=== PATIENT | male | born 1990 | race Caucasian/White ===

== ENCOUNTER 2025-03-23 12:33 | Emergency (ER) | payer MEDICAID, OTHER ==
[~2025-03-23] VITALS: Ht 170.2 cm; Wt 67.7 kg
[2025-03-23 13:40] VITALS: BP 117/78; PULSE 90; RESP 16; TEMP 98.1; O2SAT 96
[2025-03-23 13:43] LABS: Urine Bacteria None Seen /hpf (None Seen)
[2025-03-23 13:56] LABS: Urine Blood TRACE /uL (Negative); Urine Clarity Clear (Clear); Urine Color Yellow (Yellow); Urine Hyaline Cast FEW /lpf (0 - 2); Urine Protein, UAD Negative (Negative); Urine Specific Gravity 1.012 (1.001-1.035); Urine Squamous Epithelial Cell None Seen /hpf (<5); Urine Urobilinogen Normal (Negative); Urine WBC 2 /HPF (0-3)
--- NOTE | 2025-03-23 14:12 | ED.PDOC ---
History of Present Illness EXP HPI Comments 34-year-old male presents for STD concerns. Denies fevers chills night sweats Denies pelvic pain Denies nausea vomiting diarrhea Denies dysuria urgency frequency Denies history of UTI Denies blood in the urine or semen Denies recent instruments/toys and urethra Denies current tobacco use Denies family history of prostate issues Chief Complaint: Post Exposure Time Seen by MD: 13:00 Primary Care Provider: NONE Reviewed Notes: Nurses Notes, Medications, Allergies Allergies: Coded Allergies: NO KNOWN ALLERGIES (Unverified , 06/28/14) Information Source: Patient Mode of Arrival: Ambulatory Past Medical History PAST MEDICAL HISTORY: Denies Surgical History: Denies all surgeries Family History Family History: Unknown Social History Smoker: Non-Smoker Alcohol: Denies ETOH Use Drugs: Denies Drug Use All Other Systems: Reviewed and Negative (PER HPI) Physical Exam General Appearance: No Apparent Distress, Normal HEENT: Normal ENT Inspection, Pharynx Normal, TMs Normal Neck: Full Range of Motion, Non-Tender, Normal, Normal Inspection Respiratory: Chest Non-Tender, Lungs Clear, No Accessory Muscle Use, No Respiratory Distress, Normal Breath Sounds Cardiovascular: No Edema, No JVD, No Murmur, No Gallop, Normal Peripheral Pulses, Regular Rate/Rhythm Breast Exam: Deferred Gastrointestinal: No Organomegaly, Non Tender, No Pulsatile Mass, Normal Bowel Sounds, Soft Genitalia: Deferred Pelvic: Deferred Rectal: Deferred Extremities: No calf tenderness, Normal capillary refill, Normal inspection, Normal range of motion, Non-tender, No pedal edema Musculoskeletal : Apperance: Normal Neurologic: Alert, coil maker II-XII nml as Tested, No Motor Deficits, Normal Affect, Normal Mood, No Sensory Deficits Cerebellar Function: Normal Reflexes: Normal Skin: Dry, Normal Color, Warm Lymphatic: No Adenopathy Was a procedure done? Was a procedure done?: No Differential Diagnosis (EXP) Differential Diagnosis: Other X-Ray, Labs, Meds, VS Vital Signs Date Time Temp Pulse Resp B/P (MAP) Pulse Ox O2 Delivery O2 Flow Rate FiO2 03/23/25 13:40 98.1 90 16 117/78 (91) 96 98.1 03/23/25 13:40 90 16 96 Room Air 03/23/25 12:45 98.4 94 17 113/72 (86) 95 98.4 Lab Test 03/23/25 13:11 03/23/25 13:02 Range/Units Hepatitis B Surface Antigen Negative Negative Hepatitis B Surface Antibody Negative Negative Hepatitis C Antibody Pending HIV (1&2) Antibody Negative Negative Urine Color Yellow Yellow Urine Clarity Clear Clear Urine pH 5.0 5.0-9.0 Urine Specific [place] 1.012 1.001-1.035 Urine Protein Negative Negative Urine Ketones Trace Negative Urine Blood Trace H Negative /uL Urine Nitrite Negative Negative Urine Bilirubin Negative Negative Urine Urobilinogen Normal Negative mg/dL Urine Leukocyte Esterase Negative Negative /uL Urine RBC 1 0 - 3 /hpf Urine Microscopic WBC 2 0-3 /HPF Urine Squamous Epithelial Cells None seen <5 /hpf Urine Bacteria None seen None Seen /hpf Urine Hyaline Casts Few 0 - 2 /lpf Urine Glucose Normal Normal mg/dL Chlamydia trachomatis (ELSA) Pending Neisseria gonorrhoeae (ELSA) Pending X-Ray, Labs, Meds, VS Comment Discussed safe sex practices. Labs ordered. Advised patient that it is his responsibility to follow up on results. Abstain from sex until findings have been discussed Patient is stable for discharge at this time. External notes reviewed. Test results and diagnostic imaging interpreted. All diagnostic findings, discharge care, education and instructions provided Follow-up with PCP in 2 to 3 days Patient verbalized understanding and agreed to treatment plan Vital signs stable, afebrile, no acute distress noted Patient ambulatory with strong steady gait Advised to return precautions for any new or worsening symptoms, return to ER immediately for re-evaluation Patient is aware that the purpose of this visit was for an acute medical emergency requiring emergent stabilization. Chronic conditions, including malignancies have not been ruled out. Patient is instructed to follow up with PCP as directed and discharge instructions for continued care and workup. If unable to arrange follow-up, patient is to return to the emergency department f or reassessment. Patient (parent or legal guardian if applicable) was given verbal and written discharge instructions and acknowledges understanding. Time of 1ST Reevaluation: 14:00 Reevaluation 1ST: Improved Patient Education/Counseling: Diagnosis, Treatment Family Education/Counseling: Diagnosis, Treatment Departure 1 Departure Time of Disposition: 14:12 Impression: Primary Impression: Penile lump Disposition: 01 HOME / SELF CARE / HOMELESS Condition: Stable Discharged With: Self Critical Care Note Critical Care Time?: No Stability Stability form required: No Heart Score Heart Score: Heart Score Response (Comments) Value History N/A 0 EKG N/A 0 Age N/A 0 Risk Factors N/A 0 Troponin N/A 0 Total 0 JESSICA GALLEGOS NP Mar 23, 2025 14:12
--- NOTE | 2025-03-23 14:18 | ED.PDOC ---
General HPI Comments 34 y/o M, presents to the ED for CC of post exposure. Patient states, he has a bump to the shaft of his penis which has been present for xweeks. Patient reports, that he believed bump to be associated d/t shaving however, bump has not resolved. Patient comments, he would like to be tested for possible STD's/STI's despite having no new sexual partners. Patient denies itchiness, penile discharge, fever, or chills. no other symptoms or modifying factors present at this time. Sexual protection Denies fevers chills night sweats Denies pelvic pain Denies nausea vomiting diarrhea Denies dysuria urgency frequency Denies history of UTI Denies blood in the urine or semen Denies recent instruments/toys and urethra Denies current tobacco use Denies family history of prostate issues Chief Complaint: Post Exposure Time Seen by MD: 14:00 Primary Care Provider: NONE Reviewed notes: Nurses Notes, Medications, Allergies Allergies: Coded Allergies: NO KNOWN ALLERGIES (Unverified , 06/28/14) Information Source: Patient Mode of Arrival: Ambulatory Severity: Moderate Inability to void: None Timing: Weeks Duration: Since onset Prehospital treatment: None Onset: Spontaneous Symptoms: None History of: None Location: Other ([facility] [facility] ) Penile discharge: None Modifying factors: None associated signs and symptoms: None Past Medical History PAST MEDICAL HISTORY: Denies Surgical History: Denies all surgeries Family History Family History: Unknown Social History Smoker: Non-Smoker Alcohol: Denies ETOH Use Drugs: Denies Drug Use Lives In: Home All Other Systems: Reviewed and Negative ( PER HPI) Physical Exam General Appearance: No Apparent Distress, Normal HEENT: Normal ENT Inspection, Pharynx Normal, TMs Normal Neck: Full Range of Motion, Non-Tender, Normal, Normal Inspection Respiratory: Chest Non-Tender, Lungs Clear, No Accessory Muscle Use, No Respiratory Distress, Normal Breath Sounds Cardiovascular: No Edema, No Murmur, No Gallop, Normal Peripheral Pulses, Regular Rate/Rhythm Breast Exam: Deferred Gastrointestinal: No Organomegaly, Non Tender, No Pulsatile Mass, Normal Bowel Sounds, Soft Genitalia: Deferred Pelvic: Deferred Rectal: Deferred Extremities: No calf tenderness, Normal capillary refill, Normal inspection, Normal range of motion, Non-tender, No pedal edema Musculoskeletal : Apperance: Normal Neurologic: Alert, senior underwriter II-XII nml as Tested, No Motor Deficits, Normal Affect, Normal Mood, No Sensory Deficits Cerebellar Function: Normal Reflexes: Normal Skin: Dry, Normal Color, Warm Lymphatic: No Adenopathy Was a procedure done? Was a procedure done?: No Differential Diagnosis Kidney stone (Female): Other Penile/Scrotal: Epidiymitis, Prostatitis, STD X-Ray, Labs, Meds, VS Vital Signs Date Time Temp Pulse Resp B/P (MAP) Pulse Ox O2 Delivery O2 Flow Rate FiO2 03/23/25 13:40 98.1 90 16 117/78 (91) 96 98.1 03/23/25 13:40 90 16 96 Room Air 03/23/25 12:45 98.4 94 17 113/72 (86) 95 98.4 Lab Test 03/23/25 13:11 03/23/25 13:02 Range/Units Hepatitis B Surface Antigen Negative Negative Hepatitis B Surface Antibody Negative Negative Hepatitis C Antibody Pending HIV (1&2) Antibody Negative Negative Urine Color Yellow Yellow Urine Clarity Clear Clear Urine pH 5.0 5.0-9.0 Urine Specific [place] 1.012 1.001-1.035 Urine Protein Negative Negative Urine Ketones Trace Negative Urine Blood Trace H Negative /uL Urine Nitrite Negative Negative Urine Bilirubin Negative Negative Urine Urobilinogen Normal Negative mg/dL Urine Leukocyte Esterase Negative Negative /uL Urine RBC 1 0 - 3 /hpf Urine Microscopic WBC 2 0-3 /HPF Urine Squamous Epithelial Cells None seen <5 /hpf Urine Bacteria None seen None Seen /hpf Urine Hyaline Casts Few 0 - 2 /lpf Urine Glucose Normal Normal mg/dL Chlamydia trachomatis (ELSA) Pending Neisseria gonorrhoeae (ELSA) Pending X-Ray, Labs, Meds, VS Comment 34 y/o M, presents to the ED for CC of post exposure. Time of 1ST Reevaluation: 14:30 Reevaluation 1ST: Unchanged Patient Education/Counseling: Diagnosis, Treatment Family Education/Counseling: No Family Present Departure 1 Departure Time of Disposition: 10:22 Impression: Primary Impression: Penile lump Disposition: 01 HOME / SELF CARE / HOMELESS Condition: Stable Discharged With: Self Critical Care Note Critical Care Time?: No Stability Stability form required: No Heart Score Heart Score: Heart Score Response (Comments) Value History N/A 0 EKG N/A 0 Age N/A 0 Risk Factors N/A 0 Troponin N/A 0 Total 0 I personally scribed for JESSICA GALLEGOS NP ([email or web address]) on 03/23/25 at 14:18. Electronically submitted by Gianna Ochoa ([email or web address]). JESSICA GALLEGOS NP Mar 23, 2025 14:18
[2025-03-24 10:05] LABS: Hepatitis B Surface Antibody Negative (Negative); Hepatitis B Surface Antigen Negative (Negative)
[2025-03-24 20:07] LABS: Chlamydia Trachomatis, NAA Negative (Negative); Neisseria gonorrhoeae, NAA Negative (Negative)
== END 2025-03-23 14:27 | disposition home or self-care (01) ==
LOC: ER 12:43
DX: D29.0 Benign neoplasm of penis (principal); R22.9 Localized swelling, mass and lump, unspecified; R06.02 Shortness of breath
CPT/HCPCS: 36415; 81001; 86703; 86706; 86803; 87340

== ENCOUNTER 2025-07-14 18:46 | Emergency (ER) | payer MEDICAID ==
[~2025-07-14] VITALS: Ht 170.2 cm; Wt 72.7 kg
[2025-07-14 19:17] VITALS: BP 145/80; TEMP 98.3
--- NOTE | 2025-07-14 19:21 | ED.PDOC ---
History of Present Illness HPI Comments 35 y/o M is BIBA for c/c left arm pain and abnormal speech. Patient is a poor historian. He endorses on developing symptoms over the past 2x days following recent hospitalization psychiatric hold after cutting his left arm at [facility] 2x weeks ago. Per EMS personnel report, vitals were noted to have been stable and within normal limits, with a blood glucose of 91. Denial of any further acute symptoms at this time. Chief Complaint: Body Pain Time Seen by MD: 19:00 Primary Care Provider: NONE Reviewed Notes: Nurses Notes, Medications, Allergies Allergies: Coded Allergies: NO KNOWN ALLERGIES (Unverified , 06/28/14) Home Meds Active Scripts Diphenhydramine Hcl (BENADRYL CAPSULE) 25 Mg Cp, 25 MG PO Q6HP PRN, #60 CAP Prov:CARLITO WALTON MD 07/14/25 Information Source: Patient, Emergency Med Personnel Mode of Arrival: EMS Severity: Moderate Timing: Hours Duration: Since onset Prehospital treatment: None Past Medical History PAST MEDICAL HISTORY: Denies Surgical History: Denies all surgeries Family History Family History: Unknown Social History Smoker: Non-Smoker Alcohol: Denies ETOH Use Drugs: Denies Drug Use Lives In: Home All Other Systems: Reviewed and Negative (As per HPI) Physical Exam General Appearance: No Apparent Distress, Normal HEENT: Normal ENT Inspection, Pharynx Normal, TMs Normal Neck: Full Range of Motion, Non-Tender, Normal, Normal Inspection Respiratory: Chest Non-Tender, Lungs Clear, No Accessory Muscle Use, No Respiratory Distress, Normal Breath Sounds Cardiovascular: No Edema, No JVD, No Murmur, No Gallop, Normal Peripheral Pulses, Regular Rate/Rhythm Breast Exam: Deferred Gastrointestinal: No Organomegaly, Non Tender, No Pulsatile Mass, Normal Bowel Sounds, Soft Genitalia: Deferred Pelvic: Deferred Rectal: Deferred Extremities: No calf tenderness, Normal capillary refill, Normal inspection, Normal range of motion, Non-tender, No pedal edema Musculoskeletal : Apperance: Normal Neurologic: Alert, handle bender II-XII nml as Tested, No Motor Deficits, Normal Mood, No Sensory Deficits, Other (Flat affect, with deliberate speech; tremulous) Cerebellar Function: Normal Reflexes: Normal Skin: Dry, Normal Color, Warm Lymphatic: No Adenopathy Was a procedure done? Was a procedure done?: No Differential Dx Considerations may include: substance abuse, dehydration, electrolyte imbalance, schizoaffective disorder, among others X-Ray, Labs, Meds, VS Vital Signs Date Time Temp Pulse Resp B/P (MAP) Pulse Ox O2 Delivery O2 Flow Rate FiO2 07/14/25 21:45 71 20 96 Room Air 0 07/14/25 19:17 98.3 98 18 145/80 (101) 96 98.3 07/14/25 18:54 98.2 101 16 125/83 97 98.2 Lab Test 07/14/25 19:50 07/14/25 19:04 Range/Units White Blood Count 7.9 4.4-10.8 10^3/uL Red Blood Count 4.17 L 4.5-5.90 10^6/uL Hemoglobin 12.2 L 13.5-17.5 g/dL Hematocrit 36.8 L 41.0-53.0 % Mean Corpuscular Volume 88.3 80.0-100.0 fL Mean Corpuscular Hemoglobin 29.3 28.0-32.0 pg Mean Corpuscular Hemoglobin Concent 33.2 32.0-36.0 g/dL Red Cell Distribution Width 13.7 11.8-14.3 % Platelet Count 237 140-450 10^3/uL Mean Platelet Volume 9.1 6.9-10.8 fL Neutrophils (%) (Auto) 73.5 37.0-80.0 % Lymphocytes (%) (Auto) 14.0 10.0-50.0 % Monocytes (%) (Auto) 10.3 0.0-12.0 % Eosinophils (%) (Auto) 0.8 0.0-7.0 % Basophils (%) (Auto) 1.4 0.0-2.0 % Neutrophils # (Auto) 5.8 1.6-8.6 10 ^3/uL Lymphocytes # (Auto) 1.1 0.4-5.4 10 ^3/uL Monocytes # (Auto) 0.8 0-1.3 10 ^3/uL Eosinophils # (Auto) 0.1 0-0.8 10 ^3/uL Basophils # (Auto) 0.1 0-0.2 10 ^3/uL Nucleated Red Blood Cells 0.0 % Sodium Level 139 136-145 mmol/L Potassium Level 4.0 3.5-5.1 mmol/L Chloride Level 106 98-107 mmol/L Carbon Dioxide Level 22 20-31 mmol/L Anion Gap 11 5-15 Blood Urea Nitrogen 13 9-23 mg/dL Creatinine 1.05 0.700-1.30 mg/dL Glomerular Filtration Rate Calc 96 >90 mL/min BUN/Creatinine Ratio 12.4 10.0-20.0 Serum Glucose 92 74-106 mg/dL Calcium Level 9.5 8.7-10.4 mg/dL Magnesium Level 2.0 1.6-2.6 mg/dL Total Bilirubin 0.3 0.2-1.0 mg/dL Aspartate Amino Transferase (AST) 37 13-40 U/L Alanine Aminotransferase (ALT) 20 7-40 U/L Alkaline Phosphatase 97 46-116 U/L Total Protein 7.7 5.7-8.2 g/dL Albumin 5.0 H 3.2-4.8 g/dL Urine Color Yellow Yellow Urine Clarity Clear Clear Urine pH 5.0 5.0-9.0 Urine Specific [place] 1.020 1.001-1.035 Urine Protein Negative Negative Urine Ketones 1+ H Negative Urine Blood Trace H Negative /uL Urine Nitrite Negative Negative Urine Bilirubin Negative Negative Urine Urobilinogen Normal Negative mg/dL Urine Leukocyte Esterase Negative Negative /uL Urine RBC 1 0 - 3 /hpf Urine Microscopic WBC 1 0-3 /HPF Urine Squamous Epithelial Cells None seen <5 /hpf Urine Bacteria None seen None Seen /hpf Urine Glucose Normal Normal mg/dL Urine Opiates Screen Neg NEGATIVE Urine Fentanyl Screen Neg NEGATIVE Urine Barbiturates Screen Neg NEGATIVE Urine Phencyclidine Screen Neg NEGATIVE Urine Amphetamines Screen Neg NEGATIVE Urine Benzodiazepines Screen Neg NEGATIVE Urine Cocaine Screen Neg NEGATIVE Urine Cannabinoids Screen Neg NEGATIVE Current Medications Medications (Trade) Dose Ordered Sig/Manny Route Start Time Stop Time Status Last Admin Diphenhydramine HCl (Benadryl Capsule) 25 mg ONCE ONCE PO 07/14/25 21:30 07/14/25 21:31 DC 07/14/25 21:50 Time of 1ST Reevaluation: 19:30 Reevaluation 1ST: Unchanged Patient Education/Counseling: Treatment Family Education/Counseling: No Family Present SEPSIS Sepsis Screen Date sepsis recognized/suspect: Jul 14, 2025 Time Sepsis recognized/suspect: 1853 Recent Procedure: No On Antibiotic Therapy: No Respiratory Rate >20: No Heart Rate >90: Yes Temp<36 C (96.8 F) or >38.3 C: No SBP <90 or MAP <65 mmHG: No New Acute Mental Status Change: No Is the patient on CPAP, BIPAP,: No Vital Signs Date Time Temp Pulse Resp B/P (MAP) Pulse Ox O2 Delivery O2 Flow Rate FiO2 07/14/25 21:45 71 20 96 Room Air 0 07/14/25 19:17 98.3 98 18 145/80 (101) 96 98.3 07/14/25 18:54 98.2 101 16 125/83 97 98.2 Laboratory Tests Test 07/14/25 19:50 White Blood Count 7.9 10^3/uL (4.4-10.8) Medications Medications Dose Ordered Sig/Manny Route Start Time Stop Time Status Last Admin Dose Admin Diphenhydramine HCl 25 mg ONCE ONCE PO 07/14/25 21:30 07/14/25 21:31 DC 07/14/25 21:50 Departure 1 Departure Time of Disposition: 21:30 Impression: Primary Impression: Adverse drug reaction Disposition: 01 HOME / SELF CARE / HOMELESS Condition: Stable e-Prescriptions Diphenhydramine Hcl (BENADRYL CAPSULE) 25 Mg Cp 25 MG PO Q6HP PRN, #60 CAP Prov: CARLITO WALTON MD 07/14/25 Discharged With: Self Critical Care Note Critical Care Time?: No Stability Stability form required: No Heart Score Heart Score: Heart Score Response (Comments) Value History N/A 0 EKG N/A 0 Age N/A 0 Risk Factors N/A 0 Troponin N/A 0 Total 0 I personally scribed for CARLITO WALTON MD ([email or web address]) on 07/14/25 at 19:21. Electronically submitted by Rashad Orta ([email or web address]). CARLITO WALTON MD Jul 14, 2025 19:21
[2025-07-14 20:01] LABS: Hematocrit 36.8 % (41.0-53.0); Hemoglobin 12.2 g/dL (13.5-17.5); Mean Corpuscular Hemoglobin 29.3 pg (28.0-32.0); Mean Corpuscular Volume 88.3 fL (80.0-100.0); Nucleated Red Blood Cells % 0.0 %
[2025-07-14 20:05] LABS: Urine Protein, UAD Negative (Negative)
[2025-07-14 20:11] LABS: Amphetamine Screen, Urine Neg (NEGATIVE)
[2025-07-14 20:14] LABS: Alanine Aminotransferase 20 U/L (7-40); Alkaline Phosphatase 97 U/L (46-116); Anion Gap 11 (5-15); BUN/Creatinine Ratio 12.4 (10.0-20.0); Blood Urea Nitrogen 13 mg/dL (9-23); Calcium 9.5 mg/dL (8.7-10.4); Carbon Dioxide 22 mmol/L (20-31); Chloride 106 mmol/L (98-107); Glucose 92 mg/dL (74-106); Magnesium 2.0 mg/dL (1.6-2.6); Potassium 4.0 mmol/L (3.5-5.1); Sodium 139 mmol/L (136-145); Total Protein 7.7 g/dL (5.7-8.2)
[2025-07-14 20:15] LABS: Bilirubin, Total 0.3 mg/dL (0.2-1.0)
[2025-07-14 20:18] LABS: Albumin 5.0 g/dL (3.2-4.8)
[2025-07-14 20:18] LABS: Barbiturate Scree,Urine Neg (NEGATIVE); Benzodiazephine Screen, Urine Neg (NEGATIVE); Cannabinoid Screen, Urine Neg (NEGATIVE); Cocaine Screen, Urine Neg (NEGATIVE); Opiate Scree,Urine Neg (NEGATIVE); Phencyclidine Screen, Urine Neg (NEGATIVE)
[2025-07-14] MEDS ORDERED: DIPH25CA51 PO (21:22)
[2025-07-14 21:45] VITALS: PULSE 71; RESP 20; O2SAT 96
== END 2025-07-14 21:55 | disposition home or self-care (01) ==
LOC: ER 18:46 → EDBD 18:46 → ER 21:55
DX: M79.602 Pain in left arm (principal); T50.905A Adverse effect of unspecified drugs, medicaments and biological substances, initial encounter; Z79.899 Other long term (current) drug therapy; Y92.89 Other specified places as the place of occurrence of the external cause
CPT/HCPCS: 36415; 80053; 80307; 81001; 83735; 85025